=== PATIENT | male | born 2000 | race Caucasian/White ===

== ENCOUNTER 2018-11-23 16:15 | Emergency (ER) | payer SELFPAY ==
--- NOTE | 2018-11-23 16:27 | ED Physician Documentation ---
General Adult - HISTORIAN Historian: patient - HPI Stated Complaint: facial tingling and shortness of breath Chief Complaint: General Adult Additional Information: Patient presents to ED via EMS with complaint of facial tingling and shortness of breath. Patient states he was driving from [place] to [place], [place] way [place], when he began to feel tingling in his face/hands and short of breath. He pulled over and flagged down the first person he saw for help. Patient reports anxiety about health issues over the past 10 months. He was started on Lexapro 3 days ago. He denies any prolonged illnesses or hospitalizations. He reports being anxious over any new "body feelings" lately. Onset: minutes (30) Timing: better Severity: moderate - ROS CONST: no problems EYES/ENT: denies: problems with vision CVS/RESP: shortness of breath. denies: chest pain GI/: denies: vomiting, nausea MS/SKIN/LYMPH: none NEURO/PSYCH: tingling (face/arms). denies: headache, dizziness - PAST HX Past History: none, other (anxiety) Other History: none Surgeries/Procedures: none Allergies/Adverse Reactions: Allergies Allergy/AdvReac Type Severity Reaction Status Date / Time No Known Allergies Allergy Verified 11/23/18 17:00 Home Medications: Ambulatory Orders Medication Instructions Recorded Escitalopram Oxalate [Lexapro] 1 tab PO DAILY 11/23/18 - SOCIAL HX Smoking History: non-smoker Alcohol Use: none Drug Use: none - FAMILY HX Family History: No - REVIEWED ASSESSMENTS Nursing Assessment Reviewed: Yes Vitals Reviewed: Yes ED Results Lab/Radiology - Orders Orders: ED Orders Category Date Time Status OLANZapine ODT [ZyPREXA ODT] Med 11/23/18 16:23 Once 5 mg PO NOW ONE EKG WITH COMPARISON Stat Ther 11/23/18 Ordered General Adult Physical Exam - PHYSICAL EXAM GENERAL APPEARANCE: mild distress EENT: eye inspection normal, MAGALI NECK: supple RESPIRATORY: no resp distress, chest non-tender, breath sounds normal CVS: no murmur, tachycardia ABDOMEN: soft, non-tender BACK: normal inspection, no CVA tenderness SKIN: warm/dry, normal color EXTREMITIES: non-tender, no edema NEURO: oriented X3, mood/affect nml, cognition normal, other (anxious). No: facial droop Discharge Clincal Impression: Panic attack Referrals: Primary Doctor,No [Primary Care Provider] - 2 Days Additional Instructions: 1. Continue to take Lexapro as previously prescribed 2. Follow up with PCP within 1 week 3. Return to ER for new or worsening symptoms Condition: Stable Disposition: 01 HOME, SELF-CARE Decision to Admit: NO Date of Decison to Admit: 11/23/18 Decision Time: 17:28
[2018-11-23 18:18] VITALS: BP 124/78
== END 2018-11-23 17:40 | disposition home or self-care (01) ==
LOC: ED 16:15
DX: F41.0 Panic disorder [episodic paroxysmal anxiety] (principal); R06.02 Shortness of breath
CPT/HCPCS: 99283